=== PATIENT | female | born 2000 | race Two or more races ===

== ENCOUNTER 2024-07-22 07:29 | Emergency (ER) | payer OTHER ==
[~2024-07-22] VITALS: Ht 160 cm; Wt 63.5 kg
[2024-07-22] MEDS ORDERED: INTEGRA PLUS C1 EACH PO (07:46)
[2024-07-22] MEDS ORDERED: OBSTETRIX DHA1 EAC1 PO (07:46)
[2024-07-22 09:12] LABS: HEMATOCRIT 28.8 % (36.0-45.00); HEMOGLOBIN 10.1 g/dL (12.0-15.00); MEAN CELL VOLUME 93.8 fL (80.00-100.00); MEAN CORPUSCULAR HEMOGLOBIN 32.8 pg (27.00-32.0); PLATELET COUNT 258 K/uL (150-450); RED BLOOD COUNT 3.07 M/uL (4.00-6.00); RED CELL DISTRIBUTION WIDTH 13.8 % (11.5-14.5)
[2024-07-22 09:26] LABS: PH,URINE 7.5 (5.0-8.0); URINE APPEARANCE Clear; URINE BILIRRUBIN Negative (NEGATIVE); URINE BLOOD Negative; URINE COLOR Yellow; URINE GLUCOSE Negative (NEGATIVE); URINE KETONE Negative (NEGATIVE); URINE LEUKOCYTE Trace; URINE NITRATE Negative; URINE PROTEIN Negative (NEGATIVE); URINE UROBILINOGEN 0.2 E.U./dl
[2024-07-22 09:30] LABS: URINE EPITHELIAL CELLS 18.3 uL (0.0-38.8); URINE RBC 3.2 uL (0.0-20.8); URINE WBC 23.6 uL (0.0-23.2)
== END 2024-07-22 14:42 | disposition home or self-care (01) ==
LOC: ER 07:31
PROVIDERS: General Practice
DX: O26.892 Other specified pregnancy related conditions, second trimester (principal); Z3A.16 16 weeks gestation of pregnancy; R10.2 Pelvic and perineal pain

== ENCOUNTER 2024-09-23 11:23 | Emergency (ER) | payer OTHER ==
[~2024-09-23] VITALS: Ht 160 cm; Wt 68.0 kg
[~2024-09-23 11:23] MED LIST: INTEGRA PLUS C1 EACH PO; OBSTETRIX DHA1 EAC1 PO
[2024-09-23] MEDS ORDERED: INTEGRA PLUS C1 EACH (11:45)
[2024-09-23 12:42] LABS: HEMATOCRIT 30.4 % (36.0-45.00); MEAN CELL VOLUME 94.5 fL (80.00-100.00); MEAN CORPUSCULAR HGB CONC 34.4 g/dl (32.0-36.0); PLATELET COUNT 269 K/uL (150-450); RED BLOOD COUNT 3.22 M/uL (4.00-6.00); RED CELL DISTRIBUTION WIDTH 13.9 % (11.5-14.5)
[2024-09-23 12:43] LABS: HEMOGLOBIN 10.5 g/dL (12.0-15.00); MEAN CORPUSCULAR HEMOGLOBIN 32.6 pg (27.00-32.0)
[2024-09-23 13:08] LABS: URINE APPEARANCE Clear; URINE BILIRRUBIN Negative (NEGATIVE); URINE BLOOD Negative; URINE COLOR Yellow; URINE GLUCOSE Negative (NEGATIVE); URINE KETONE Negative (NEGATIVE); URINE LEUKOCYTE Trace; URINE NITRATE Negative; URINE PROTEIN Negative (NEGATIVE); URINE UROBILINOGEN 0.2 E.U./dl
[2024-09-23 13:12] LABS: URINE BACTERIA 1082.9 uL (0.0-1933); URINE EPITHELIAL CELLS 5.8 uL (0.0-38.8); URINE WBC 15.5 uL (0.0-23.2)
[2024-09-23 13:45] LABS: URINE RBC 0.2 uL (0.0-20.8)
== END 2024-09-23 16:37 | disposition home or self-care (01) ==
LOC: ER 11:25
PROVIDERS: Emergency Medicine
DX: O23.32 Infections of other parts of urinary tract in pregnancy, second trimester (principal); N39.0 Urinary tract infection, site not specified; Z3A.26 26 weeks gestation of pregnancy; B96.1 Klebsiella pneumoniae [K. pneumoniae] as the cause of diseases classified elsewhere; Z16.11 Resistance to penicillins

== ENCOUNTER 2024-10-31 19:34 | Emergency (ER) | payer OTHER ==
[~2024-10-31] VITALS: Ht 160 cm; Wt 68.0 kg
[~2024-10-31 19:34] MED LIST changes: +INTEGRA PLUS C1 EACH
[2024-10-31] MEDS ORDERED: PRENATABS RX T1 EACH (20:05)
== END 2024-10-31 22:51 | disposition home or self-care (01) ==
LOC: ER 19:36
DX: O99.513 Diseases of the respiratory system complicating pregnancy, third trimester (principal); Z3A.31 31 weeks gestation of pregnancy; J10.1 Influenza due to other identified influenza virus with other respiratory manifestations; Z20.822 Contact with and (suspected) exposure to COVID-19

== ENCOUNTER 2024-12-21 13:24 | Inpatient (IN) | payer OTHER ==
[~2024-12-21] VITALS: Ht 160 cm; Wt 69.4 kg
[2024-12-21 13:03] VITALS: BP 98/60
[~2024-12-21 13:24] MED LIST changes: +PRENATABS RX T1 EACH
[2024-12-21] MEDS ORDERED: RINGERS SOLUTION,LACTATED 1,000 ML IV SCH (13:30)
[2024-12-21] MEDS ORDERED: AMPICILLIN SODIUM 2,000 MG VIAL IV ONE (13:30)
[2024-12-21] MEDS ORDERED: IRON325 MG PO (13:32)
[2024-12-21 15:19] LABS: PH,URINE 6.5 (5.0-8.0); URINE APPEARANCE Clear; URINE BILIRRUBIN Negative (NEGATIVE); URINE BLOOD Moderate; URINE COLOR Yellow; URINE GLUCOSE Negative (NEGATIVE); URINE LEUKOCYTE Negative; URINE NITRATE Negative; URINE PROTEIN Negative (NEGATIVE)
[2024-12-21 15:23] LABS: URINE BACTERIA 107.6 uL (0.0-1933); URINE EPITHELIAL CELLS 11.7 uL (0.0-38.8); URINE RBC 142.1 uL (0.0-20.8); URINE WBC 10.6 uL (0.0-23.2)
[2024-12-21] MEDS ORDERED: ERYTHROMYCIN BASE OPHT 1GM EACH TUBE OP ONE ×2 (15:26→17:30)
[2024-12-21] MEDS ORDERED: LIDOCAINE HCL 1% 10ML VIAL ONE (15:26)
[2024-12-21] MEDS ORDERED: CHLORHEXIDINE GLUCONATE 120 ML BOTTLE TOP ONE ×2 (15:26→17:30)
[2024-12-21] MEDS ORDERED: OXYTOCIN 20 UNITS/1000ML RL PIGGYBAG IV ONE ×2 (15:26→20:36)
[2024-12-21 15:29] LABS: HEMATOCRIT 36.8 % (36.0-45.00); HEMOGLOBIN 12.5 g/dL (12.0-15.00); MEAN CORPUSCULAR HEMOGLOBIN 31.9 pg (27.00-32.0); MEAN CORPUSCULAR HGB CONC 33.9 g/dl (32.0-36.0); PLATELET COUNT 236 K/uL (150-450); RED BLOOD COUNT 3.91 M/uL (4.00-6.00); RED CELL DISTRIBUTION WIDTH 14.8 % (11.5-14.5)
[2024-12-21 15:30] VITALS: BP 100/49
[2024-12-21] MEDS ORDERED: OXYTOCIN 500 ML IV SCH (15:30)
[2024-12-21 15:39] LABS: URINE CAST 0.58 uL (0.0-1.40); URINE KETONE >=160 (NEGATIVE)
[2024-12-21 15:42] LABS: INR 0.94; PARTIAL THROMBOPLASTIN TIME 28.6 SECONDS (22.0-34.0); PROTHROMBIN TIME 10.3 SECONDS (9.0-11.5)
[2024-12-21] MEDS ORDERED: OXYTOCIN 20 UNITS/500ML RL PIGGYBAG IV ONE (15:59)
[2024-12-21 16:10] LABS: BILIRUBIN TOTAL 0.53 mg/dL (0.3-1.2); CREATININE SERUM 0.41 mg/dL (0.55-1.02); GFR 192.24; GLOBULINA 4.1 G/DL (2.4-3.5); POTASSIUM 3.93 mEq/L (3.5-5.1); TOTAL PROTEIN 7.1 gm/dL (6.4-8.2)
[2024-12-21] MEDS ORDERED: AMPICILLIN SODIUM 1,000 MG VIAL IV SCH (17:00)
[2024-12-21 17:02] VITALS: BP 119/69
[2024-12-21 17:15] VITALS: BP 113/65
[2024-12-21] MEDS ORDERED: LIDOCAINE HCL 1% 10ML VIAL PERCUT ONE (17:30)
[2024-12-21] MEDS ORDERED: OXYTOCIN 1,000 ML IV SCH (17:30)
[2024-12-21] MEDS ORDERED: IBUprofen 600 MG TABLET PO SCH (18:00)
[2024-12-21 21:22] VITALS: BP 95/60
[2024-12-22] VITALS: BP 100/68
[2024-12-22 07:49] VITALS: BP 92/68
[2024-12-22 17:17] VITALS: BP 100/60
[2024-12-23 00:03] VITALS: BP 90/50
[2024-12-23 08:00] VITALS: BP 90/55
== END 2024-12-23 16:25 | disposition home or self-care (01) | DRG 807 ==
LOC: LDR 13:24 → OB/GYN 17:27
PROVIDERS: Student in an Organized Health Care Education/Training Program; ADMIT Specialist; ATTEND Specialist
PROC: 10E0XZZ Delivery of Products of Conception, External Approach (ICD-10-PCS; principal; 2024-12-21)
PROC: 0HQ9XZZ Repair Perineum Skin, External Approach (ICD-10-PCS; 2024-12-21)
PROC: 4A1HXCZ Monitoring of Products of Conception, Cardiac Rate, External Approach (ICD-10-PCS; 2024-12-21)
DX: O70.0 First degree perineal laceration during delivery (principal); Z37.0 Single live birth; O99.824 Streptococcus B carrier state complicating childbirth; Z3A.38 38 weeks gestation of pregnancy